=== PATIENT | female | born 1975 | race Caucasian/White ===

== ENCOUNTER 2016-11-27 05:43 | Emergency (ER) | payer BC, SELFPAY ==
--- NOTE | 2016-12-13 15:23 | ER ---
ADMIT: 11/27/2016 RM/LOC: ER [facility] MR#: [id number] [place], [place] [id number] [address] [address]ALL [address] [place] [id number] Emergency Room Report SEX: F AGE: 41 : 1975 DATE: 11/27/2016 ADDENDUM: A 41-year-old female, initially seen by Dr. Lowry. I refer you to his T-sheet. Essentially, she had some upper respiratory-like symptoms, a little chest discomfort. Lab EKG all negative. He did order a CTA, which was essentially negative as well. She had a history of bronchitis. He is treating her as such with prednisone metered-dose inhaler and then putting her on doxycycline. She should follow up as needed, and she is off work today. CONDITION ON DISCHARGE: Good. Mynor Navas MD/ terry JOB #: [id number] CC: Ralph Bee MD, Attending Physician Kathy Dempsey MD, Family Physician
== END 2016-11-27 07:54 | disposition home or self-care (01) ==
LOC: ER 05:43
DX: J45.901 Unspecified asthma with (acute) exacerbation (principal); Z90.49 Acquired absence of other specified parts of digestive tract; Z90.89 Acquired absence of other organs